=== PATIENT | female | born 1990 | race Caucasian/White ===

== ENCOUNTER 2025-04-09 00:16 | Inpatient (IN) | payer OTHER ==
[~2025-04-09 00:16] MED LIST: Carboprost Tromethamine 250 MCG/1 mL Vial IM PRN; Misoprostol 50 MCG (1/2 of 100 MCG) Tab PO SCH; Nalbuphine HCl 10 MG/ 1ML Amp IM PRN; Sodium Chloride 0.9% 10 ML Syringe FLUSH PRN; fentaNYL 100 MCG/2 ML SDV IVPUSH PRN
[2025-04-09] MEDS: Misoprostol 50 MCG (1/2 of 100 MCG) Tab PO PRN (01:18)
[2025-04-09 01:23] LABS: PLATELET COUNT,PLT 214.0 10^3/uL (150-450); RED BLOOD CELL COUNT 3.91 10^6/uL (4.2-5.4); WHITE BLOOD CELL COUNT,WBC 11.2 10^3/uL (5.0-10.0)
[2025-04-09] MEDS: Lactated Ringers 1,000 ML IV SCH (01:23)
[2025-04-09] MEDS: Penicillin G Potassium 5 MILLUNITS in Sodium Chloride 0.9% 100 ML IV ONE (01:23)
[2025-04-09 01:49] LABS: ALANINE AMINOTRANSFERASE,ALT 14 U/L (14-59); ASPARTATE AMNIOTRANSFERASE,AST 13 U/L (15-37); BILIRUBIN TOTAL 0.3 mg/dL (0.2-1.0); BLOOD UREA NITROGEN,BUN 8 mg/dL (7-18); CARBON DIOXIDE,CO2 24 mmol/L (21-32); CHLORIDE,CL 104 mmol/L (98-107); CREATININE 0.45 mg/dL (0.55-1.02); GLUCOSE RANDOM 92 mg/dL (70-99); POTASSIUM,K 3.6 mmol/L (3.5-5.1); PROTEIN TOTAL,TP 5.8 g/dL (6.4-8.2); SODIUM,NA 139 mmol/L (136-145)
[2025-04-09 01:51] LABS: A/G RATIO 0.87; ESTIMATED GFR 131 mL/min (>=60)
[2025-04-09 02:53] LABS: CREATININE,URINE RAND < 13.00 mg/dL (No establ ref range); PROTEIN,URINE RANDOM < 6.0 mg/dL (0.0-11.9)
[2025-04-09] MEDS: Penicillin G Potassium 3 MILLUNITS in Sodium Chloride 0.9% 100 ML IV SCH (05:32)
[2025-04-09] MEDS: Ondansetron 4 MG/2 ML SDV IVPUSH PRN (08:02)
[2025-04-09] MEDS: Oxytocin/Normal Saline 30 UNIT/500 ML BAG IV SCH (11:46)
[2025-04-09] MEDS: Lactated Ringers 1,000 ML IV ONE (12:50)
[2025-04-09] MEDS ORDERED: ePHEDrine 50 MG/ML SDV IVPUSH PRN (13:52)
[2025-04-09] MEDS ORDERED: Ropivacaine 200 MG in Premix Bag 1 BAG EPIDUR SCH (14:00)
[2025-04-09] MEDS ORDERED: Oxytocin 10 Units/1 ML SDV IM PRN (17:49)
[2025-04-09] MEDS ORDERED: Sodium Chloride 0.9% 10 ML Syringe FLUSH PRN (17:49)
[2025-04-09] MEDS: Benzocaine/Menthol 20%-0.5% Spray 78 GM Cannister TOP PRN (18:40)
[2025-04-09] MEDS: Witch Hazel Medicated Pads 100/Jar TOP PRN (18:41)
[2025-04-10 06:29] LABS: PLATELET COUNT,PLT 189.0 10^3/uL (150-450); RED BLOOD CELL COUNT 3.77 10^6/uL (4.2-5.4); WHITE BLOOD CELL COUNT,WBC 12.3 10^3/uL (5.0-10.0)
[2025-04-10] MEDS: Prenatal Multivitamin with Calcium/Folic Acid/Iron Tab PO SCH (09:05)
[2025-04-10] MEDS ORDERED: Ropivacaine 100 ML EPIDUR ONE (18:39)
[2025-04-10] MEDS ORDERED: fentaNYL 100 MCG/2 ML SDV EPIDUR ONE (18:39)
== END 2025-04-10 18:40 | disposition home or self-care (01) | DRG 807 ==
LOC: DL.OB 00:16 → OBSVTOIN 17:21
PROVIDERS: ADMIT Family Medicine; ATTEND Family Medicine
PROC: 10E0XZZ Delivery of Products of Conception, External Approach (ICD-10-PCS; principal; 2025-04-09)
PROC: 00HU33Z Insertion of Infusion Device into Spinal Canal, Percutaneous Approach (ICD-10-PCS; 2025-04-09)
PROC: 3E03329 Introduction of Other Anti-infective into Peripheral Vein, Percutaneous Approach (ICD-10-PCS; 2025-04-09)
PROC: 3E033VJ Introduction of Other Hormone into Peripheral Vein, Percutaneous Approach (ICD-10-PCS; 2025-04-09)
PROC: 3E0DXGC Introduction of Other Therapeutic Substance into Mouth and Pharynx, External Approach (ICD-10-PCS; 2025-04-09)
PROC: 4A0HXCZ Measurement of Products of Conception, Cardiac Rate, External Approach (ICD-10-PCS; 2025-04-09)
PROC: 3E0S3BZ Introduction of Anesthetic Agent into Epidural Space, Percutaneous Approach (ICD-10-PCS; 2025-04-09)
DX: O99.824 Streptococcus B carrier state complicating childbirth (principal); Z37.0 Single live birth; Z3A.39 39 weeks gestation of pregnancy; O99.344 Other mental disorders complicating childbirth; F41.9 Anxiety disorder, unspecified
CPT/HCPCS: 36415; 51702; 59409; 80053; 82570; 84156; 85027; A9270-GY; J0690; J2210; J2405; J2540; J2590; J2795; J3010; J7120